=== PATIENT | female | born 1995 | race Caucasian/White ===

== ENCOUNTER → 2019-09-18 14:24 | Outpatient (CLI) | payer MEDICARE, MEDICAID, SELFPAY ==
--- NOTE | 2019-09-18 14:26 | DI.MRI.S_ITS ---
PROCEDURE: MR HEAD/BRAIN WO CON INDICATIONS: unusual headache features TECHNIQUE: Noncontrast axial T1 spin echo, axial T2 fast spin echo, sagittal and axial FLAIR, coronal T2 fast spin echo, axial gradient echo, axial diffusion and ADC through the brain. COMPARISON: [facility], MR, BRAIN W&W/O CONTRAST, 02/23/2015, 11:43. FINDINGS: Image quality: Excellent. CSF Spaces: Basal cisterns are patent. No extra-axial fluid collections. Ventricles are normal in size and shape. Brain: No intracranial masses or hemorrhage. Torres/white matter interface is normal. Brainstem appears normal. Diffusion-weighted images demonstrate no acute ischemic insult. No chronic ischemic insults. 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 Normal intravascular flow voids are present. Skull and face: Calvarium has normal marrow signal. Orbits appear normal. Sinuses: Sinuses and mastoids are clear. IMPRESSION: 1. No acute intracranial abnormalities. 2. 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 Dictated by: Ragini Miranda M.D. on 09/20/2019 at 9:04 Transcribed by: IFEOMA on 09/20/2019 at 9:05 Approved by: Ragini Miranda M.D. on 09/20/2019 at 10:33
== END ==
PROVIDERS: Family Provider Student in an Organized Health Care Education/Training Program; PCP Student in an Organized Health Care Education/Training Program; Visit Provider Family Medicine
DX: G43.501 Persistent migraine aura without cerebral infarction, not intractable, with status migrainosus (principal); E34.8 Other specified endocrine disorders
CPT/HCPCS: 70551